=== PATIENT | male | born 1985 ===

== ENCOUNTER 2017-12-27 16:44 | Outpatient (REF) | payer MEDICAID, SELFPAY ==
[2017-12-27 20:56] LABS: Abs Immature Grans 0.02 k/cumm (0.0-0.09); Absolute Basophil Count 0.02 k/cumm (0.0-0.2); Absolute Eosinophil Count 0.19 k/cumm (0.0-0.7); Absolute Monocyte Count 0.54 k/cumm (0.11-0.7); Absolute Neutrophil Count 4.23 k/cumm (1.2-6.7); Basophils % 0.3; Eosinophils % 2.4; HGB 14.5 g/dL (13.5-17.5); Immature Grans % 0.3; Lymphocytes % 36.7; Mean Corpuscular Hemoglobin 27.3 pg (27.0-33.0); Mean Corpuscular Volume 82.7 fL (80-95); Mean Platelet Volume 10.3 fL (8.0-11.0); Monocytes % 6.8; Neutrophils % 53.5; Platelet Count 356 x1000/uL (130-400); RBC 5.32 m/cumm (4.50-6.00); RBC Distribution Width 14.1 % (11.8-14.1)
[2017-12-27 21:08] LABS: ALT 32 U/L (12-78); AST 16 U/L (15-37); Alkaline Phosphatase 81 U/L (46-116); Anion Gap 7.5 mmol/L (3-11); BUN 9 mg/dL (7-18); Bilirubin, Total 0.3 mg/dL (0.2-1.0); C-Reactive Protein 0.24 mg/dL (0.0-0.3); CO2 27.5 mmol/L (21.0-32.0); CREATININE 0.82 mg/dL (0.70-1.30); Calcium 9.4 mg/dL (8.5-10.1); Chloride 103 mmol/L (98-107); Glucose 108 mg/dL (70-100); Potassium 4.4 mmol/L (3.5-5.1); Sodium 138 mmol/L (136-145)
[2017-12-27 22:01] LABS: ESR 5 MM/HR (0-15)
[2017-12-29 09:56] LABS: Rheumatoid Factor <8 IU/mL (<12.5)
[2017-12-29 10:10] LABS: Cyclic Citrullinated Peptide <2.5 U/mL (<5.0)
[2017-12-29 12:05] LABS: ANA Interpretation Negative (NEGAT)
== END 2017-12-27 17:04 ==
LOC: NCHCN 16:44
PROVIDERS: PCP Nurse Practitioner Family; Visit Provider Nurse Practitioner Family
DX: M25.50 Pain in unspecified joint (principal)
CPT/HCPCS: 80053; 85652; 86200; 84550; 85025; 86038; 86140; 86431

== ENCOUNTER 2019-08-09 11:46 | Outpatient (REF) | payer MEDICAID, SELFPAY ==
[2019-08-09 20:40] LABS: HCT 43.9 % (40.0-50.0); HGB 14.7 g/dL (13.5-17.5); Mean Corp. HGB Concentration 33.5 g/dL (32.0-36.0); Mean Corpuscular Hemoglobin 27.3 pg (27.0-33.0); Mean Corpuscular Volume 81.4 fL (80-95); Mean Platelet Volume 10.1 fL (8.0-11.0); Platelet Count 398 x1000/uL (130-400); RBC 5.39 m/cumm (4.50-6.00); RBC Distribution Width 14.1 % (11.8-14.1); White Blood Cell Count 7.12 k/cumm (4.4-10.8)
[2019-08-09 21:01] LABS: ALT 33 U/L (16-63); AST 16 U/L (15-37); Albumin 4.3 g/dL (3.4-5.0); Alkaline Phosphatase 74 U/L (46-116); Anion Gap 6.4 mmol/L (3-11); BUN 9 mg/dL (7-18); Bilirubin, Total 0.3 mg/dL (0.2-1.0); CO2 28.6 mmol/L (21.0-32.0); CREATININE 1.07 mg/dL (0.70-1.30); Calcium 9.4 mg/dL (8.5-10.1); Calculated LDL 161 mg/dL (<100); Chloride 103 mmol/L (98-107); Cholesterol 219 mg/dL (<200); Glucose 93 mg/dL (74-106); HDL Cholesterol 30 mg/dL (40-60); Potassium 4.7 mmol/L (3.5-5.1); Sodium 138 mmol/L (136-145); TSH (W/Ref FT4) 0.46 uIU/mL (0.36-3.74); Total Protein 7.5 g/dL (6.4-8.2); Triglyceride 144 mg/dL (<150)
== END 2019-08-09 12:06 ==
LOC: NCHCN 11:46
PROVIDERS: PCP Nurse Practitioner Family; Visit Provider Nurse Practitioner Family
DX: R00.2 Palpitations (principal); E66.9 Obesity, unspecified
CPT/HCPCS: 80053; 80061; 85027; 83735; 84443

== ENCOUNTER 2021-03-04 16:47 | Outpatient (REF) | payer MEDICAID, SELFPAY ==
[2021-03-06 14:05] LABS: COVID-19 RT-PCR UVMMC Result Negative (Negative)
== END 2021-03-04 16:48 | disposition home or self-care (01) ==
LOC: NCHCN 16:47
PROVIDERS: PCP Nurse Practitioner Family; Visit Provider Nurse Practitioner Family
DX: Z20.822 Contact with and (suspected) exposure to COVID-19 (principal); J06.9 Acute upper respiratory infection, unspecified
CPT/HCPCS: U0003

== ENCOUNTER 2023-07-23 14:47 | Outpatient (REF) | payer MEDICAID, SELFPAY ==
[2023-07-23 14:30] LABS: Abs Immature Grans 0.05 10^3/uL (0.0-0.06); Absolute Basophil Count 0.06 10^3/uL (0.0-0.2); Absolute Eosinophil Count 0.11 10^3/uL (0.0-0.7); Absolute Lymphocyte Count 2.58 10^3/uL (1.2-3.4); Absolute Monocyte Count 1.11 10^3/uL (0.1-0.8); Basophils % 0.5; Eosinophils % 0.9; HGB 13.8 g/dL (13.5-17.5); Immature Grans % 0.4; Lymphocytes % 21.2; MCH 26.9 pg (27.0-33.0); MCHC 32.9 % (32.0-36.0); MCV 82 fL (80-95); MPV 9.6 fL (8.0-11.0); Monocytes % 9.1; Neutrophils % 67.9; Platelet Count 440 10^3/uL (130-400); RBC 5.13 10^6/uL (4.36-5.78); RDW 13.1 % (11.8-14.1); RDW-SD 38.5 fL; WBC 12.16 10^3/uL (4.4-10.8)
[2023-07-23 14:34] LABS: Absolute Neutrophil Count 8.26 10^3/uL (1.2-6.7)
[2023-07-23 15:40] LABS: ALT 17 U/L (16-63); AST 13 U/L (15-37); Albumin 4.2 g/dL (3.4-5.0); Alkaline Phosphatase 86 U/L (46-116); Bilirubin, Total 0.4 mg/dL (0.2-1.0); CREATININE 1.4 mg/dL (0.70-1.30); Calcium 9.6 mg/dL (8.5-10.1); Calculated LDL 159 mg/dL (<100); Chloride 102 mmol/L (98-107); Cholesterol 212 mg/dL (<200); Estimated GFR 66.39 (mL/min/1.73m2); Glucose 93 mg/dL (74-106); HDL Cholesterol 36 mg/dL (40-60); Sodium 140 mmol/L (136-145); Total Protein 8.1 g/dL (6.4-8.2); Triglyceride 87 mg/dL (<150)
[2023-07-23 15:49] LABS: BUN 16 mg/dL (7-18)
[2023-07-23 16:03] LABS: Hemoglobin A1C 5.8 % (<5.7)
== END 2023-07-23 14:48 | disposition home or self-care (01) ==
LOC: NCHCN 14:47
PROVIDERS: PCP Nurse Practitioner Family; Visit Provider Registered Nurse
DX: R11.10 Vomiting, unspecified (principal); R79.89 Other specified abnormal findings of blood chemistry; Z13.1 Encounter for screening for diabetes mellitus; Z13.220 Encounter for screening for lipoid disorders
CPT/HCPCS: 80053; 80061; 83036; 85025

== ENCOUNTER 2023-08-05 15:08 | Outpatient (REF) | payer MEDICAID, SELFPAY ==
[2023-08-05 14:47] LABS: Anion Gap 7.6 mmol/L (3-11); BUN 16 mg/dL (7-18); CO2 30.4 mmol/L (21.0-32.0); CREATININE 1.4 mg/dL (0.70-1.30); Calcium 9.8 mg/dL (8.5-10.1); Chloride 100 mmol/L (98-107); Estimated GFR 66.39 (mL/min/1.73m2); Glucose 92 mg/dL (74-106); Potassium 4.4 mmol/L (3.5-5.1); Sodium 138 mmol/L (136-145)
[2023-08-05 21:18] LABS: Abs Immature Grans 0.02 10^3/uL (0.0-0.06); Absolute Eosinophil Count 0.14 10^3/uL (0.0-0.7); Absolute Lymphocyte Count 2.64 10^3/uL (1.2-3.4); Absolute Monocyte Count 0.87 10^3/uL (0.1-0.8); Absolute Neutrophil Count 7.26 10^3/uL (1.2-6.7); Basophils % 0.5 %; Eosinophils % 1.3 %; HCT 40.7 % (40.0-50.0); HGB 13.7 g/dL (13.5-17.5); Immature Grans % 0.2 %; MCH 27.2 pg (27.0-33.0); MCHC 33.7 % (32.0-36.0); MCV 81 fL (80-95); MPV 9.6 fL (8.0-11.0); Monocytes % 7.9 %; Neutrophils % 66.1 %; Platelet Count 638 10^3/uL (130-400); RBC 5.03 10^6/uL (4.36-5.78); RDW 12.6 % (11.8-14.1); WBC 10.99 10^3/uL (4.4-10.8)
[2023-08-05 21:19] LABS: Absolute Basophil Count 0.05 10^3/uL (0.0-0.2)
[2023-08-05 21:51] LABS: TSH (W/Ref FT4) 0.59 uIU/mL (0.36-3.74)
[2023-08-06 22:07] LABS: HIV-1/2 Ag & Ab Screen Negative (Negative)
[2023-08-06 22:12] LABS: Hepatitis C Ab w Rflx HCV PCR Negative (Negative)
[2023-08-09 11:19] LABS: Lyme Ab w Rflx to Lyme Confirm Negative (Negative)
[2023-08-10 01:20] LABS: Anaplasma phagocytophilum Negative (Negative); B. miyamotoi PCR Negative (Negative); Babesia divergens/MO-1 Negative (Negative); Babesia duncani Negative (Negative); Babesia microti Negative (Negative); Ehrlichia chaffeensis Negative (Negative); Ehrlichia ewingii/canis Negative (Negative); Ehrlichia muris eauclairensis Negative (Negative)
== END 2023-08-05 15:09 | disposition home or self-care (01) ==
LOC: NCHCN 15:08
PROVIDERS: Family Medicine; PCP Nurse Practitioner Family; Visit Provider Registered Nurse
DX: N28.9 Disorder of kidney and ureter, unspecified (principal); R53.83 Other fatigue; Z11.3 Encounter for screening for infections with a predominantly sexual mode of transmission; R10.9 Unspecified abdominal pain; Z11.59 Encounter for screening for other viral diseases
CPT/HCPCS: 80048; 86803; 87389; 87798; 84443; 85025; 86618

== ENCOUNTER 2023-08-25 18:27 | Outpatient (REF) | payer MEDICAID, SELFPAY ==
[2023-08-25 15:23] LABS: Abs Immature Grans 0.03 10^3/uL (0.0-0.06); Absolute Basophil Count 0.04 10^3/uL (0.0-0.2); Absolute Eosinophil Count 0.12 10^3/uL (0.0-0.7); Absolute Lymphocyte Count 2.23 10^3/uL (1.2-3.4); Absolute Monocyte Count 0.66 10^3/uL (0.1-0.8); Absolute Neutrophil Count 6.03 10^3/uL (1.2-6.7); Basophils % 0.4 %; Eosinophils % 1.3 %; HCT 39.1 % (40.0-50.0); HGB 12.7 g/dL (13.5-17.5); Immature Grans % 0.3 %; Lymphocytes % 24.5 %; MCH 26.3 pg (27.0-33.0); MCHC 32.5 % (32.0-36.0); MCV 81 fL (80-95); MPV 9.7 fL (8.0-11.0); Monocytes % 7.2 %; Neutrophils % 66.3 %; Platelet Count 503 10^3/uL (130-400); RBC 4.82 10^6/uL (4.36-5.78); RDW 12.7 % (11.8-14.1); RDW-SD 37.3 fL; WBC 9.11 10^3/uL (4.4-10.8)
[2023-08-25 15:38] LABS: Anion Gap 5.3 mmol/L (3-11); BUN 14 mg/dL (7-18); CO2 30.7 mmol/L (21.0-32.0); CREATININE 1.2 mg/dL (0.70-1.30); Calcium 9.3 mg/dL (8.5-10.1); Chloride 102 mmol/L (98-107); Estimated GFR 79.38 (mL/min/1.73m2); Glucose 101 mg/dL (74-106); Potassium 4.2 mmol/L (3.5-5.1); Sodium 138 mmol/L (136-145)
== END 2023-08-25 18:28 | disposition home or self-care (01) ==
LOC: NCHCN 18:27
PROVIDERS: PCP Nurse Practitioner Family; Visit Provider Family Medicine
DX: D72.828 Other elevated white blood cell count (principal); I10 Essential (primary) hypertension
CPT/HCPCS: 80048; 85025

== ENCOUNTER 2023-12-21 19:43 | Outpatient (REF) | payer MEDICAID, SELFPAY ==
[2023-12-21 21:27] LABS: Abs Immature Grans 0.04 10^3/uL (0.0-0.06); Absolute Basophil Count 0.05 10^3/uL (0.0-0.2); Absolute Eosinophil Count 0.14 10^3/uL (0.0-0.7); Absolute Lymphocyte Count 2.66 10^3/uL (1.2-3.4); Absolute Monocyte Count 0.94 10^3/uL (0.1-0.8); Basophils % 0.5 %; Eosinophils % 1.3 %; HCT 32.1 % (40.0-50.0); Immature Grans % 0.4 %; Lymphocytes % 24.5 %; MCH 23.4 pg (27.0-33.0); MCHC 31.2 % (32.0-36.0); MCV 75 fL (80-95); MPV 9.1 fL (8.0-11.0); Monocytes % 8.7 %; Neutrophils % 64.6 %; Platelet Count 688 10^3/uL (130-400); RBC 4.27 10^6/uL (4.36-5.78); RDW 14.1 % (11.8-14.1); RDW-SD 37.3 fL; WBC 10.84 10^3/uL (4.4-10.8)
[2023-12-21 21:46] LABS: ALT 28 U/L (16-63); AST 17 U/L (15-37); Albumin 3.3 g/dL (3.4-5.0); Alkaline Phosphatase 93 U/L (46-116); Anion Gap 5.3 mmol/L (3-11); BUN 12 mg/dL (7-18); Bilirubin, Total 0.26 mg/dL (0.2-1.0); CO2 30.7 mmol/L (21.0-32.0); CREATININE 1.2 mg/dL (0.70-1.30); Calcium 10.2 mg/dL (8.5-10.1); Chloride 98 mmol/L (98-107); Estimated GFR 79.38 (mL/min/1.73m2); Glucose 88 mg/dL (74-106); Potassium 4.4 mmol/L (3.5-5.1); Sodium 134 mmol/L (136-145)
== END 2023-12-21 19:44 | disposition home or self-care (01) ==
LOC: NCHCN 19:43
PROVIDERS: PCP Nurse Practitioner Family; Visit Provider Family Medicine
DX: C64.9 Malignant neoplasm of unspecified kidney, except renal pelvis (principal)
CPT/HCPCS: 80053; 85025